=== PATIENT | female | born 1945 | race Two or more races ===

== ENCOUNTER 2016-02-18 00:35 | Inpatient (IN) | payer OTHER, MEDICAID ==
[~2016-02-18] VITALS: Ht 165.1 cm; Wt 121.4 kg
[2016-02-18] VITALS (10 sets, daily range): BP systolic 142–183; BP diastolic 62–77; PULSE 60–70; RESP 18–20; Ht 165.1 cm; Wt 121.4 kg
[~2016-02-18 00:35] MED LIST: ASPI-535 PO; CALC-600 PO; CELE50CA PO; LISI20TA11 PO; MONT10TA21 PO; MTF1000T PO; OMEP20TA42 PO; RAMI10CA48 PO; SITA25TA3 PO; SMV40T PO; TRIA1POW10 MC; [UNRECOGNIZED DRUG - CODE] PO
[2016-02-18] MEDS ORDERED: SOD CHLORIDE 0.9% 500 ML IV STA (00:45)
--- NOTE | 2016-02-18 01:25 | RADRPT ---
PROCEDURE: XR Chest. CLINICAL INDICATION: Syncope TECHNIQUE: AP Portable chest. COMPARISON: 01/16/2013 FINDINGS: There is moderate cardiomegaly. The lungs are clear. The osseous structures are unremarkable. IMPRESSION: No acute findings. RPTAT: HIKT .Vinicio Bay MD, MD Date Time Electronically viewed and signed by .Vinicio Bay MD, MD on 02/18/2016 01:25 .T/
[2016-02-18 01:32] LABS: BASOPHILS % 0.4 % (0.0-2.0); EOSINOPHILS # 0.1 10^3/ul (0.0-0.5); EOSINOPHILS % 2.2 % (0.0-7.0); HEMATOCRIT 34.3 % (37.0-47.0); HEMOGLOBIN 11.2 g/dl (12.0-16.0); LYMPHOCYTES # 0.9 10^3/ul (0.8-2.9); LYMPHOCYTES % 15.7 % (15.0-51.0); MEAN CORPUSCULAR HEMOGLOBIN 25.3 pg (29.0-33.0); MEAN CORPUSCULAR HGB CONC 32.6 g/dl (32.0-37.0); MEAN CORPUSCULAR VOLUME 77.6 fl (82.0-101.0); MEAN PLATELET VOLUME 9.9 fl (7.4-10.4); MONOCYTE # 0.5 10^3/ul (0.3-0.9); MONOCYTES % 9.5 % (0.0-11.0); NEUTROPHILS % 72.2 % (39.0-77.0); PLATELET COUNT 100 10^3/UL (140-440); RED BLOOD COUNT 4.42 10^6/ul (4.20-5.40); RED CELL DISTRIBUTION WIDTH 16.8 % (11.5-14.5); UNCORRECTED WBC 5.6 10^3/ul (4.8-10.8); WHITE BLOOD COUNT 5.6 10^3/ul (4.8-10.8)
[2016-02-18 01:34] LABS: CONDITION 1; LH ANALYZER COMMENTS 1
[2016-02-18] MEDS ORDERED: LORAZEPAM 2 MG INJ ONE (01:36)
[2016-02-18 01:44] LABS: CHLORIDE 102 mmol/L (97-110); POTASSIUM 3.9 mmol/L (3.5-5.1); SODIUM 138 mmol/L (135-144)
[2016-02-18 01:47] LABS: ANION GAP 18 (8-16); BLOOD UREA NITROGEN 21 mg/dl (7-20); CARBON DIOXIDE 22 mmol/L (21-31); CREATININE 0.58 mg/dl (0.44-1.00)
[2016-02-18 01:48] LABS: CALCIUM 9.1 mg/dl (8.4-10.2); GLUCOSE 167 mg/dl (70-220)
[2016-02-18] MEDS ORDERED: LORAZEPAM 2 MG INJ IV ONE (02:00)
[2016-02-18 02:05] LABS: TROPONIN-I < 0.012 ng/ml (0.00-0.12)
--- NOTE | 2016-02-18 02:13 | RADRPT ---
PROCEDURE: CT brain without contrast. CLINICAL INDICATION: Syncope. TECHNIQUE: CT of the brain was performed using a ZMPpeed 64-slice VCT scann er. Contiguous axial images using 5-mm slice thickness were obtained from the skull base to the cassie marychuy without contrast. Coronal and sagittal reformatted images were also obtained. Images were review ed on a PACS workstation. Exam CTD/vol = 43.77 mGy. Total exam DLP = 810.25 mGy-cm. COMPARISON: 01/14/2013. FINDINGS: There is prior left frontotemporal craniotomy. There is an area of encephalomalacia within the left temporal lobe. The ventricles and cortical sulci are prominent consistent with mild age related vol ume loss. There are patchy areas of low attenuation within the periventricular and subcortical whit e matter consistent with mild chronic ischemic changes secondary to small vessel disease. There is no mass effect or midline shift. There is no intracranial hemorrhage or abnormal extra-axial collec tion. There are atherosclerotic calcifications within bilateral distal internal carotid arteries. Vi sualized paranasal sinuses and mastoid air cells are clear. IMPRESSION: No acute intracranial abnormality identified. Mild age related volume loss and chronic ischemic white matter disease. Cerebral atherosclerosis. Status post left frontotemporal craniotomy with area of encephalomalacia within the left temporal lo be. .Mauricio Ornelas MD, MD Date Time Electronically viewed and signed by .Mauricio Ornelas MD, MD on 02/18/2016 02:13 .T/
--- NOTE | 2016-02-18 02:19 | ERA ---
ER Documentation Chief Complaint Date/Time DATE: 02/18/16 TIME: 02:18 Chief Complaint L ankle pain, R knee pain,no fall HPI This 70-year-old female complains of left ankle and right knee pain after she either passed out or almost passed out. Patient is unable to quantify between the 2. She denies any chest pain. Pain in ankle and knee are mild to moderate intensity. No fevers or chills. No palpitations. No chest pain. No other current complaints. She is nonfocal neurologically with no focal neurological complaints ROS All systems reviewed and are negative except as per history of present illness. Medications Home Meds Reported Medications Sitagliptin* (Januvia*) 25 Mg Tablet, 25 MG PO DAILY 04/02/12 Aspirin Ec (Aspir 81) 81 Mg Tablet.dr, 81 MG PO DAILY 04/02/12 Montelukast Sodium* (Singulair*) 10 Mg Tablet, 10 MG PO DAILY 04/02/12 Lisinopril* (Lisinopril*) 20 Mg Tablet, 20 MG PO DAILY 04/02/12 Simvastatin (Simvastatin) 40 Mg Tablet, 40 MG PO MIN 04/02/12 Calcium (Calcium) 500 Mg Tablet, 500 MG PO DAILY 03/09/11 Triamterene (Triamterene Powder) 25 Gm Powder, 25 GM MC DAILY 03/09/11 Celecoxib (Celebrex) 50 Mg Capsule, 50 MG PO DAILY 03/09/11 Ramipril (Ramipril) 10 Mg Capsule, 10 MG PO DAILY 03/09/11 Omeprazole (Omeprazole) 20 Mg Tablet.dr, 20 MG PO DAILY 03/09/11 Hydrocodone Bit/Acetaminophen (Hydrocodone-Apap 10-500 Mg Tab) 1 Tab Tablet, 1 TAB PO DAILY 03/09/11 Metformin* (Glucophage*) 1,000 Mg Tablet, 1000 MG PO DAILY 03/09/11 Allergies Allergies: Coded Allergies: No Known Allergy (Unverified , 01/14/13) PMhx/Soc History of Surgery: Yes (R ANKLE, L KNEE) Anesthesia Reaction: No Hx Respiratory Disorders: Yes Hx Cardiac Disorders: Yes Hx Psychiatric Problems: No Hx Alcohol Use: No Hx Substance Use: No Hx Tobacco Use: Yes Smoking Status: Former smoker Physical Exam Vitals Vital Signs Date Time Temp Pulse Resp B/P Pulse Ox O2 Delivery O2 Flow Rate FiO2 02/18/16 00:46 98.1 73 18 141/90 99 Physical Exam Const: [] Head: Atraumatic Eyes: Normal Conjunctiva ENT: Normal External Ears, Nose and Mouth. Neck: Full range of motion..~ No meningismus. Resp: Clear to auscultation bilaterally Cardio: Regular rate and rhythm, no murmurs Abd: Soft, non tender, non distended. Normal bowel sounds Skin: No petechiae or rashes Back: No midline or flank tenderness Ext: No cyanosis, or edema Neur: Awake and alert Psych: Normal Mood and Affect Result Diagram: 02/18/1612402/18/16124 Results 24 hrs Laboratory Tests Test 02/18/16 01:18 02/18/16 01:25 Bedside Glucose 167mg/dL Anion Gap 18 Basophils # 0.010^3/ul Basophils % 0.4% Blood Morphology Comment Blood Urea Nitrogen 21mg/dl Calcium Level 9.1mg/dl Carbon Dioxide Level 22mmol/L Chloride Level 102mmol/L Creatinine 0.58mg/dl Eosinophils # 0.110^3/ul Eosinophils % 2.2% Glucose Level 167mg/dl Hematocrit 34.3% Hemoglobin 11.2g/dl Lymphocytes # 0.910^3/ul Lymphocytes % 15.7% Mean Corpuscular Hemoglobin 25.3pg Mean Corpuscular Hemoglobin Concent 32.6g/dl Mean Corpuscular Volume 77.6fl Mean Platelet Volume 9.9fl Monocytes # 0.510^3/ul Monocytes % 9.5% Neutrophils # 4.010^3/ul Neutrophils % 72.2% Nucleated Red Blood Cells # 0.010^3/ul Nucleated Red Blood Cells % 0.0/100WBC Platelet Count 55646^3/UL Potassium Level 3.9mmol/L Red Blood Count 4.4210^6/ul Red Cell Distribution Width 16.8% Sodium Level 138mmol/L Troponin I < 0.012ng/ml White Blood Count 5.610^3/ul Current Medications Medications (Trade) Dose Ordered Sig/Macho Route PRN Reason Start Time Stop Time Status Last Admin Dose Admin Sodium Chloride (NS) 500 ml @ 500 mls/hr Q1H STAT IV 02/18/16 00:45 02/18/16 01:44 DC 02/18/16 01:41 Lorazepam (Ativan) 1 mg ONCE ONCE IV 1/3/17 02:00 02/18/16 02:01 DC 02/18/16 01:41 Lorazepam (Ativan) 2 mg STK-MED ONCE .ROUTE 02/18/16 01:36 02/18/16 01:37 DC Procedures/MDM EKG: Rate/Rhythm: Normal Sinus Rhythm QRS, ST, T-waves: No changes consistent w/ acute ischemia Impression: No evidence of ischemia or arrhythmia Chest X-ray 1V Interpreted by me: Soft Tissue: No acute abnormalities Bones: No acute abnormalities Mediastinum/Cardiac Silhouette/Lungs: No acute abnormalities Head CT was read as negative I do not feel any further imaging was necessary for her knee or ankle given no evidence of any bony abnormalities are full range of motion of both joints. Patient's syncopal symptoms are unstable at this time and require inpatient workup. No evidence of PE or dissection at this time but occult ischemia or fatal dysrhythmia cannot be ruled out. Patient admitted to hospitalist at 2 AM in stable but guarded condition Departure Diagnosis: Primary Impression: Syncope Qualified Code: R55 - Syncope, unspecified syncope type Condition: Serious MAURO MARROQUIN Feb 18, 2016 02:19
[2016-02-18] MEDS ORDERED: KETOROLAC 30 MG INJ IM STA (03:00)
[2016-02-18] MEDS ORDERED: ACETAMINOPHEN 325 MG TAB PO PRN (08:30)
[2016-02-18] MEDS ORDERED: NACL 0.9% 3 ML SYG IV SCH (08:30)
[2016-02-18] MEDS ORDERED: NON-FORMULARY/PATIENT OWN MED (Simvastatin 40 MG) PO SCH (08:30)
[2016-02-18] MEDS ORDERED: ONDANSETRON 4 MG INJ IV PRN (08:30)
[2016-02-18] MEDS ORDERED: morphine 2 MG INJ IV PRN (08:30)
[2016-02-18] MEDS ORDERED: DOCUSATE SODIUM 100 MG CAP PO PRN (08:30)
[2016-02-18] MEDS ORDERED: HYDROCODONE/APAP (5/325) TAB PO PRN (08:30)
[2016-02-18] MEDS ORDERED: CELECOXIB 50 MG PO SCH (09:00)
[2016-02-18] MEDS ORDERED: TRIAMTERENE MC SCH (09:00)
[2016-02-18] MEDS ORDERED: CALCIUM CARBONATE 1.25 GM TAB PO SCH ×2 (09:00→09:25)
[2016-02-18] MEDS ORDERED: NON-FORMULARY/PATIENT OWN MED (Ramipril 10 MG) PO SCH (09:00)
[2016-02-18] MEDS ORDERED: NON-FORMULARY/PATIENT OWN MED (Sitagliptin* (Januvia*) 25 MG) PO SCH (09:00)
[2016-02-18] MEDS: metFORMIN 500 MG TAB PO SCH (09:54)
[2016-02-18] MEDS: LISINOPRIL 20 MG TAB PO SCH (09:55)
[2016-02-18] MEDS: MONTELUKAST 10 MG TAB PO SCH (09:55)
[2016-02-18] MEDS: ASPIRIN (EC) 81 MG TAB PO SCH (09:55)
[2016-02-18] MEDS: PANTOPRAZOLE (EC) 40 MG TAB PO SCH (09:55)
[2016-02-18] MEDS: ENOXAPARIN 40 MG/0.4 ML SYG SC SCH (09:58)
--- NOTE | 2016-02-18 11:17 | HP ---
DATE OF ADMISSION: 02/18/2016 TIME OF ADMISSION: 8:00 a.m. CHIEF COMPLAINT: Weakness. HISTORY OF PRESENT ILLNESS: The patient is a 70-year-old female with history of debility who is mos tly bed bound. She does ambulate with a front-wheel walker. She has a history of pnc-ljasjzi-mlhwl dent diabetes, hypertension and obesity. The patient denies any history of stroke in the past. She states that she has some issues with her feet where it sounds like they are constantly adducted. S he does see a specialist for this. She states that yesterday she felt weaker than usual and stated that her front-wheel walker was broken and felt uncomfortable to get on the walker and walk. She de nies any syncope, denies any dizziness. She states that she just felt weaker than her usual baselin e. She has no other complaints at this time. No nausea, vomiting. No chest pain or shortness of b reath. PAST MEDICAL HISTORY: As per HPI. Of note, the patient follows up with Dr. Fran Delarosa as her PCP. HOME MEDICATIONS: 1. Ravia. 2. Aspirin. 3. Calcium. 4. Celebrex. 5. Lisinopril. 6. Metformin. 7. Singulair. 8. Omeprazole. 9. Ramipril. 10. Simvastatin. 11. Januvia. 12. Triamterene powder. ALLERGIES: NO KNOWN DRUG ALLERGIES. FAMILY HISTORY: Noncontributory. SOCIAL HISTORY: Denies alcohol, tobacco, or drug abuse. REVIEW OF SYSTEMS: A 12-point review of systems negative except as in HPI. PHYSICAL EXAMINATION: VITAL SIGNS: Temperature is 98.1, pulse 95, respiratory rate 22, blood pressure 154/68, saturation 99% on room air. GENERAL: No acute distress, alert and oriented. HEENT: Normocephalic, atraumatic. LUNGS: Clear to auscultation. CARDIOVASCULAR: Regular rate and rhythm. ABDOMEN: Nondistended, nontender, soft. EXTREMITIES: No clubbing, cyanosis, or edema. LABORATORIES: White count 5.6, hemoglobin 11.2, platelets are 100. Chemistry within normal limits except for anion gap of 18, BUN is 21. DIAGNOSTICS: Chest x-ray shows no acute findings. Brain CT shows no acute abnormalities, mild age- related volume loss and chronic white matter disease, cerebral atherosclerosis, status post left fro ntotemporal craniotomy with area of encephalomalacia within the left temporal lobe. ASSESSMENT AND PLAN: 1. Acute on chronic debility. The patient once again denies any syncopal episode. She states that she feels weaker than usual. We will obtain a PT evaluation. The patient may benefit from rehabil itation placement. 2. Ora-xhoimoa-ewojabiqe diabetes. Resume patient's home Januvia. 3. Hypertension. Continue home medications. 4. Prophylaxis. Lovenox. Dictated By: AMAURI SAMANIEGO MD BS/NTS Conf#: [id number] DID#: [id number]
[2016-02-18] MEDS: INSULIN ASPART [NOVOLOG] 3 ML PEN SC SCH ×3 (12:02→21:00)
[2016-02-18] MEDS: LINAGLIPTIN 5 MG TABLET PO SCH (15:02)
[2016-02-18] MEDS: BENAZEPRIL 20 MG TAB PO SCH (15:03)
[2016-02-18] MEDS ORDERED: SIMVASTATIN 20 MG TAB PO SCH (21:00)
[2016-02-18] MEDS: ATORVASTATIN 20 MG TAB PO SCH (21:05)
[2016-02-19] VITALS (10 sets, daily range): BP systolic 96–181; BP diastolic 53–83; PULSE 63–69; RESP 18–20
[2016-02-19] MEDS ORDERED: ACCUCHECK XX SCH (02:00)
[2016-02-19] MEDS: PANTOPRAZOLE (EC) 40 MG TAB PO SCH (05:24)
[2016-02-19 06:17] LABS: BASOPHILS % 0.7 % (0.0-2.0); EOSINOPHILS # 0.2 10^3/ul (0.0-0.5); EOSINOPHILS % 4.2 % (0.0-7.0); HEMATOCRIT 33.3 % (37.0-47.0); LYMPHOCYTES % 24.3 % (15.0-51.0); MEAN CORPUSCULAR HEMOGLOBIN 25.6 pg (29.0-33.0); MEAN CORPUSCULAR VOLUME 77.6 fl (82.0-101.0); MEAN PLATELET VOLUME 10.3 fl (7.4-10.4); MONOCYTE # 0.4 10^3/ul (0.3-0.9); NEUTROPHIL # 2.5 10^3/ul (1.6-7.5); NEUTROPHILS % 60.8 % (39.0-77.0); PLATELET COUNT 98 10^3/UL (140-440); RED BLOOD COUNT 4.28 10^6/ul (4.20-5.40); RED CELL DISTRIBUTION WIDTH 17.3 % (11.5-14.5); UNCORRECTED WBC 4.1 10^3/ul (4.8-10.8); WHITE BLOOD COUNT 4.1 10^3/ul (4.8-10.8)
[2016-02-19 06:38] LABS: CONDITION 1; LH ANALYZER COMMENTS 1
[2016-02-19 06:52] LABS: POTASSIUM 4.2 mmol/L (3.5-5.1)
[2016-02-19 06:54] LABS: CREATININE 0.56 mg/dl (0.44-1.00)
[2016-02-19 06:55] LABS: CALCIUM 9.3 mg/dl (8.4-10.2); MAGNESIUM 1.6 mg/dl (1.7-2.5); PHOSPHORUS 3.8 mg/dl (2.5-4.9)
[2016-02-19 07:18] LABS: T3 UPTAKE 32.3 % (23.5-40.5)
[2016-02-19] MEDS: metFORMIN 500 MG TAB PO SCH (07:41)
[2016-02-19] MEDS: INSULIN ASPART [NOVOLOG] 3 ML PEN SC SCH ×5 (07:53→20:52)
[2016-02-19] MEDS: LINAGLIPTIN 5 MG TABLET PO SCH (08:22)
[2016-02-19] MEDS: MONTELUKAST 10 MG TAB PO SCH (08:22)
[2016-02-19] MEDS: ASPIRIN (EC) 81 MG TAB PO SCH (08:22)
[2016-02-19] MEDS: LISINOPRIL 20 MG TAB PO SCH (08:23)
[2016-02-19] MEDS: BENAZEPRIL 20 MG TAB PO SCH (08:23)
[2016-02-19] MEDS: ENOXAPARIN 40 MG/0.4 ML SYG SC SCH (08:28)
--- NOTE | 2016-02-19 17:09 | PDOCDIS ---
Discharge Instructions CONDITION Patient Condition: Stable HOME CARE INSTRUCTIONS: Special Diet: Diabetic ACTIVITY: Activity Restrictions: Slowly Increase Activity FOLLOW UP/APPOINTMENTS Appointments Go to the nearest ER or call 911 if you have chest pain, shortness of breath, fever, chills MAURO SOLIMAN MD Feb 19, 2016 17:09
[2016-02-19] MEDS ORDERED: MAGNESIUM OXIDE 400 MG TAB PO ONE (17:30)
[2016-02-19] MEDS ORDERED: MAGNESIUM SULFATE 2 GM/50 ML 50 ML IVPB SCH (18:00)
--- NOTE | 2016-02-19 19:23 | PN ---
Date/Time of Note Date/Time of Note DATE: 02/19/16 TIME: 19:23 Assessment/Plan Lines/Catheters IV Catheter Type (from Nrs): Saline Lock Urinary Cath still in place: No Exam/Review of Systems Vital Signs Vitals Vital Signs Date Time Temp Pulse Resp B/P Pulse Ox O2 Delivery O2 Flow Rate FiO2 02/19/16 12:03 98.1 63 18 154/83 96 02/18/16 07:45 Room Air Intake and Output 02/18/16 02/18/16 02/19/16 15:00 23:00 07:00 Intake Total 100 ml 1000 ml 600 ml Output Total 1600 ml 1500 ml Balance 100 ml -600 ml -900 ml Results Result Diagram: 02/19/16 0535 02/19/16 0535 Results 24 hrs Laboratory Tests Test 02/18/16 21:04 02/19/16 05:35 02/19/16 07:38 02/19/16 12:04 Bedside Glucose 152 178 145 Anion Gap 18 H Basophils # 0.0 Basophils % 0.7 Blood Morphology Comment Blood Urea Nitrogen 13 Calcium Level 9.3 Carbon Dioxide Level 24 Chloride Level 106 Creatinine 0.56 Eosinophils # 0.2 Eosinophils % 4.2 Free Thyroxine Index 2.78 Glucose Level 170 Hematocrit 33.3 L Hemoglobin 11.0 L Hemoglobin A1c 7.7 H Lymphocytes # 1.0 Lymphocytes % 24.3 Magnesium Level 1.6 L Mean Corpuscular Hemoglobin 25.6 L Mean Corpuscular Hemoglobin Concent 33.0 Mean Corpuscular Volume 77.6 L Mean Platelet Volume 10.3 Monocytes # 0.4 Monocytes % 10.0 Neutrophils # 2.5 Neutrophils % 60.8 Nucleated Red Blood Cells # 0.0 Nucleated Red Blood Cells % 0.0 Phosphorus Level 3.8 Platelet Count 98 L Potassium Level 4.2 Red Blood Count 4.28 Red Cell Distribution Width 17.3 H Sodium Level 144 Thyroxine (T4) 8.6 Triiodothyronine (T3) Uptake 32.3 White Blood Count 4.1 #L Test 02/19/16 17:23 Bedside Glucose 127 Medications Medications Current Medications Ondansetron HCl (Zofran Inj) 4 mg Q6H PRN IV NAUSEA AND/OR VOMITING; Start 02/17 at 08:30 Acetaminophen (Tylenol Tab) 650 mg Q6H PRN PO PAIN LEVEL 1-3 OR FEVER; Start at 08:30 Acetaminophen/ Hydrocodone Bitart ([place] (5/325)) 1 tab Q6H PRN PO MODERATE PAIN LEVEL 4-6 Last administered on 02/19/16 12:07; Admin Dose 1 TAB; Start 02/17 at 08:30 Morphine Sulfate (morphine) 2 mg Q4H PRN IV SEVERE PAIN LEVEL 7-10; Start at 08:30 Docusate Sodium (Colace) 100 mg Q12H PRN PO CONSTIPATION; Start 02/18/16 at 08: 30 Enoxaparin Sodium (Lovenox) 40 mg DAILY SC Last administered on 02/19/16 08:28 ; Admin Dose 40 MG; Start 02/18/16 at 09:00 Aspirin (Halfprin) 81 mg DAILY PO Last administered on 02/19/16 08:22; Admin Dose 81 MG; Start 02/18/16 at 09:00 Lisinopril (Zestril) 20 mg DAILY PO Last administered on 02/19/16 08:23; Admin Dose 20 MG; Start 02/18/16 at 09:00 Montelukast Sodium (Singulair) 10 mg DAILY PO Last administered on 02/19/16 08: 22; Admin Dose 10 MG; Start 02/18/16 at 09:00 Miscellaneous Information 50 mg DAILY PO ; Start 02/18/16 at 09:00; Status UNV Pantoprazole (Protonix Tab) 40 mg DAILY@06 PO Last administered on 02/19/16 05: 24; Admin Dose 40 MG; Start 02/18/16 at 09:00 Miscellaneous Information 25 gm DAILY MC ; Start 02/18/16 at 09:00; Status UNV Diagnostic Test (Pha) (Accucheck) 1 ea 02 XX ; Start 02/19/16 at 02:00 Calcium Carbonate (Oyster Shell Calcium) 1.25 gm DAILY PO Last administered on 02/19/16 08:22; Admin Dose 1.25 GM; Start 02/18/16 at 09:25 Benazepril HCl (Lotensin) 20 mg DAILY PO Last administered on 02/19/16 08:23; Admin Dose 20 MG; Start 02/18/16 at 13:00 Linagliptin (Tradjenta) 5 mg DAILY PO Last administered on 02/19/16 08:22; Admin Dose 5 MG; Start 02/18/16 at 13:00 Atorvastatin Calcium 20 mg 20 mg DAILY@21 PO Last administered on 02/18/16 21: 05; Admin Dose 20 MG; Start 02/18/16 at 21:00 Magnesium Sulfate (Magnesium Sulfate 2 Gm/50 ml) 50 ml @ 25 mls/hr ONCE IVPB ; Start 02/19/16 at 18:00; Stop 02/19/16 at 19:59 MAURO SOLIMAN MD Feb 19, 2016 19:23
[2016-02-19] MEDS: ATORVASTATIN 20 MG TAB PO SCH (20:50)
== END 2016-02-19 22:00 | disposition home or self-care (01) | DRG 72 ==
LOC: E/R 00:35 → TEL 02:10 → MS2 02-19 11:50
PROVIDERS: ADMIT Internal Medicine; ATTEND Internal Medicine
DX: I67.2 Cerebral atherosclerosis (principal); R54 Age-related physical debility; E11.9 Type 2 diabetes mellitus without complications; I10 Essential (primary) hypertension; R53.1 Weakness
CPT/HCPCS: 36415; 70450; 71010; 80048; 82962; 83036; 83735; 84100; 84436; 84479; 84484; 85025; 93005; 96374; J1650; J1815; J1885; J2060; J3475; J7040

== ENCOUNTER 2016-02-26 04:42 | Inpatient (IN) | payer OTHER, MEDICAID ==
[~2016-02-26] VITALS: Ht 162.6 cm; Wt 119.1 kg
[2016-02-26 05:40] LABS: BASOPHILS % 0.6 % (0.0-2.0); EOSINOPHILS # 0.4 10^3/ul (0.0-0.5); EOSINOPHILS % 5.5 % (0.0-7.0); HEMATOCRIT 35.3 % (37.0-47.0); HEMOGLOBIN 11.7 g/dl (12.0-16.0); LYMPHOCYTES # 1.2 10^3/ul (0.8-2.9); LYMPHOCYTES % 16.2 % (15.0-51.0); MEAN CORPUSCULAR HEMOGLOBIN 25.6 pg (29.0-33.0); MEAN CORPUSCULAR HGB CONC 33.1 g/dl (32.0-37.0); MEAN CORPUSCULAR VOLUME 77.2 fl (82.0-101.0); MEAN PLATELET VOLUME 10.3 fl (7.4-10.4); MONOCYTE # 0.5 10^3/ul (0.3-0.9); MONOCYTES % 7.5 % (0.0-11.0); NEUTROPHIL # 5.1 10^3/ul (1.6-7.5); NEUTROPHILS % 70.2 % (39.0-77.0); PLATELET COUNT 110 10^3/UL (140-440); RED BLOOD COUNT 4.57 10^6/ul (4.20-5.40); RED CELL DISTRIBUTION WIDTH 16.3 % (11.5-14.5); UNCORRECTED WBC 7.2 10^3/ul (4.8-10.8); WHITE BLOOD COUNT 7.2 10^3/ul (4.8-10.8)
[2016-02-26 05:48] LABS: ALBUMIN 4.1 g/dl (3.3-4.9); CHLORIDE 105 mmol/L (97-110); POTASSIUM 4.2 mmol/L (3.5-5.1); SODIUM 140 mmol/L (135-144)
[2016-02-26 05:49] LABS: INR 1.08; PT RATIO 1.1
[2016-02-26 05:50] LABS: ANION GAP 19 (8-16); ASPARTATE AMINO TRANSFERASE 33 IU/L (15-46); BILIRUBIN,INDIRECT 0.2 mg/dl (0-1.1); BILIRUBIN,TOTAL 0.2 mg/dl (0.2-1.3); CARBON DIOXIDE 20 mmol/L (21-31); CONDITION 1; CREATININE 0.59 mg/dl (0.44-1.00); LH ANALYZER COMMENTS 1; PARTIAL THROMBOPLASTIN TIME 29.1 Sec (25.0-35.0)
[2016-02-26 05:51] LABS: ALANINE AMINOTRANSFERASE 29 IU/L (13-69); ALBUMIN/GLOBULIN RATIO 1.17; ALKALINE PHOSPHATASE 109 IU/L (42-121); BLOOD UREA NITROGEN 14 mg/dl (7-20); CALCIUM 9.8 mg/dl (8.4-10.2); GLUCOSE 214 mg/dl (70-220); TOTAL PROTEIN 7.6 g/dl (6.1-8.1)
--- NOTE | 2016-02-26 05:55 | RADRPT ---
PROCEDURE: XR Chest. CLINICAL INDICATION: Stroke symptoms TECHNIQUE: A single AP view of the chest was obtained. COMPARISON: Chest x-ray dated 02/18/2016 FINDINGS: No focal airspace opacification, pleural effusion or pneumothorax is seen. The cardiomediastinal si lhouette is mildly enlarged. Calcifications are seen within the aortic arch. The osseous structure s demonstrate senescent changes. IMPRESSION: 1. No radiographic evidence of acute cardiopulmonary disease. no significant interval change. 2. Mild cardiomegaly and aortic atherosclerosis. RPTAT: HH .Ernestine Dorado MD, MD Date Time Electronically viewed and signed by .Ernestine Dorado MD, MD on 02/26/2016 05:55 .G/
--- NOTE | 2016-02-26 06:08 | RADRPT ---
PROCEDURE: CT Brain without contrast. CLINICAL INDICATION: Weakness and suspected stroke TECHNIQUE: Axial images from the skull base through the vertex without IV contrast. Multiplanar r eformatted images were made. Images were reviewed on a PACS workstation. The CTDIvol is 45.01 mGy and the DLP is 720.23 mGycm. One or more of the following dose reduction techniques were used: auto mated exposure control, adjustment of the mA and/or kV according to patient size, or use of iterativ e reconstruction technique. COMPARISON: 02/18/2016 FINDINGS: Again seen are changes from prior left frontotemporal craniotomy with left temporal lobe encephaloma lacia. Atrophy and chronic microvascular ischemic changes are again seen. There is no definite donaldo dence for acute territorial infarction or intracranial hemorrhage. No mass or midline shift is seen . No extraaxial fluid collection is seen. Partial opacification of the left mastoid is unchanged. IMPRESSION: No definite acute intracranial abnormality. Stable exam with atrophy and chronic microvascular ische alyssa changes with left temporal lobe encephalomalacia and postoperative changes. Results were called to Dr. Garcia at 02/26/2016 6:04:41 AM RPTAT: HLBE Physician Vivek Date Time Electronically viewed and signed by Physician Vivek on 02/26/2016 06:08 RACHEL/
[2016-02-26 06:14] LABS: TROPONIN-I < 0.010 ng/ml (0.00-0.12)
[2016-02-26] MEDS ORDERED: HYDROCODONE/APAP (10/325) TAB PO ONE (06:30)
[2016-02-26] MEDS ORDERED: ASPIRIN 325 MG TAB PO ONE (06:30)
[2016-02-26 06:34] LABS: ADD UMIC YES; URINE BILIRUBIN (Dip) NEGATIVE (NEGATIVE); URINE BLOOD (Dip) 3+ (NEGATIVE); URINE COLOR LT. YELLOW (YELLOW); URINE GLUCOSE (Dip) NEGATIVE (NEGATIVE); URINE KETONES (Dip) NEGATIVE (NEGATIVE); URINE LEUKOCYTE ESTERASE (Dip) 1+ (NEGATIVE); URINE NITRITE (Dip) NEGATIVE (NEGATIVE); URINE TOTAL PROTEIN (Dip) NEGATIVE (NEGATIVE); URINE UROBILINOGEN (Dip) 0.2 E.U./dL (0.1-1.0)
[2016-02-26 06:50] LABS: BACTERIA,URINE MODERATE
[2016-02-26] MEDS ORDERED: ONDANSETRON 4 MG INJ IV PRN ×2 (07:00→07:30)
[2016-02-26] MEDS ORDERED: ACETAMINOPHEN 325 MG TAB PO PRN (07:00)
[2016-02-26] MEDS ORDERED: DEXTROSE 5%-0.45% NACL 1,000 ML IV SCH (07:07)
[2016-02-26] MEDS ORDERED: morphine 2 MG INJ IV PRN (07:30)
[2016-02-26] MEDS ORDERED: LORAZEPAM 2 MG INJ IV PRN (07:30)
[2016-02-26] MEDS ORDERED: NACL 0.9% 3 ML SYG IV SCH (07:30)
[2016-02-26] MEDS ORDERED: NITROGLYCERIN (SL) 0.4 MG TAB SL PRN (07:30)
[2016-02-26] MEDS ORDERED: BISACODYL 10 MG SUPP PR PRN (07:30)
[2016-02-26] MEDS ORDERED: ACETAMINOPHEN 650 MG SUPP PR PRN (07:30)
[2016-02-26] MEDS ORDERED: DEXTROSE 50% 50 ML SYRINGE IV PRN ×2 (08:00)
[2016-02-26] MEDS: INSULIN ASPART [NOVOLOG] 3 ML PEN SC SCH ×4 (08:00→22:06)
[2016-02-26] MEDS ORDERED: GLUCOSE GEL 15 GRAM TUBE PO PRN ×2 (08:00)
[2016-02-26] MEDS ORDERED: GLUCAGON 1 MG INJ IM PRN (08:00)
[2016-02-26] MEDS ORDERED: GLUCOSE GEL 15 GRAM TUBE BUCCAL PRN (08:00)
--- NOTE | 2016-02-26 08:10 | ERA ---
ER Documentation Chief Complaint Date/Time DATE: 02/26/16 TIME: 08:07 Chief Complaint facial weakness, w/ right facial droop nunmbness of both hands at 6 pm yest HPI Patient is a 71-year-old female with coronary disease, hypertension, diabetes, and previous stroke who presents with right-sided facial droop and right-sided numbness. The patient says that she had trouble swallowing which started last night around 6 PM. She has no slurred speech. She does have right arm weakness and is having limited ability to close her right hand. She has had no treatment as of yet. The symptoms have been constant since last night at 6 PM. ROS All systems reviewed and are negative except as per history of present illness. Medications Home Meds Reported Medications Sitagliptin* (Januvia*) 25 Mg Tablet, 25 MG PO DAILY 04/02/12 Aspirin Ec (Aspir 81) 81 Mg Tablet.dr, 81 MG PO DAILY 04/02/12 Montelukast Sodium* (Singulair*) 10 Mg Tablet, 10 MG PO DAILY 04/02/12 Lisinopril* (Lisinopril*) 20 Mg Tablet, 20 MG PO DAILY 04/02/12 Simvastatin (Simvastatin) 40 Mg Tablet, 40 MG PO MIN 04/02/12 Calcium (Calcium) 500 Mg Tablet, 500 MG PO DAILY 03/09/11 Triamterene (Triamterene Powder) 25 Gm Powder, 25 GM MC DAILY 03/09/11 Celecoxib (Celebrex) 50 Mg Capsule, 50 MG PO DAILY 03/09/11 Ramipril (Ramipril) 10 Mg Capsule, 10 MG PO DAILY 03/09/11 Omeprazole (Omeprazole) 20 Mg Tablet.dr, 20 MG PO DAILY 03/09/11 Hydrocodone Bit/Acetaminophen (Hydrocodone-Apap 10-500 Mg Tab) 1 Tab Tablet, 1 TAB PO DAILY 03/09/11 Metformin* (Glucophage*) 1,000 Mg Tablet, 1000 MG PO DAILY 03/09/11 Allergies Allergies: Coded Allergies: No Known Allergy (Unverified , 01/14/13) PMhx/Soc History of Surgery: Yes (craniotomy years ago,ankle and knee surgery) Anesthesia Reaction: No Hx Neurological Disorder: Yes Hx Respiratory Disorders: No Hx Cardiac Disorders: Yes (htn) Hx Psychiatric Problems: No Hx Miscellaneous Medical Probl: No Hx Alcohol Use: No Hx Substance Use: No Hx Tobacco Use: Yes Smoking Status: Current every day smoker FmHx Family History: diabetes Physical Exam Vitals Vital Signs Date Time Temp Pulse Resp B/P Pulse Ox O2 Delivery O2 Flow Rate FiO2 02/26/16 07:00 97.9 73 20 121/76 100 Room Air 02/26/16 06:14 83 22 136/76 98 Room Air 02/26/16 05:30 87 17 164/96 99 Room Air 02/26/16 04:46 97.8 90 20 232/93 97 Physical Exam Const: No acute distress Head: Atraumatic Eyes: Normal Conjunctiva ENT: Right-sided facial droop Neck: Full range of motion..~ No meningismus. Resp: Clear to auscultation bilaterally Cardio: Regular rate and rhythm, no murmurs Abd: Soft, non tender, non distended. 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, no pronator drift, no slurred speech Psych: Normal Mood and Affect Result Diagram: 02/26/16 0508 02/26/16 0508 Results 24 hrs Laboratory Tests Test 02/26/16 05:08 02/26/16 05:32 Activated Partial Thromboplast Time 29.1Sec Alanine Aminotransferase (ALT/SGPT) 29IU/L Albumin 4.1g/dl Albumin/Globulin Ratio 1.17 Alkaline Phosphatase 109IU/L Anion Gap 19 Aspartate Amino Transf (AST/SGOT) 33IU/L Basophils # 0.010^3/ul Basophils % 0.6% Blood Morphology Comment Blood Urea Nitrogen 14mg/dl Calcium Level 9.8mg/dl Carbon Dioxide Level 20mmol/L Chloride Level 105mmol/L Creatinine 0.59mg/dl Direct Bilirubin 0.00mg/dl Eosinophils # 0.410^3/ul Eosinophils % 5.5% Globulin 3.50g/dl Glucose Level 214mg/dl Hematocrit 35.3% Hemoglobin 11.7g/dl INR International Normalized Ratio 1.08 Indirect Bilirubin 0.2mg/dl Lymphocytes # 1.210^3/ul Lymphocytes % 16.2% Mean Corpuscular Hemoglobin 25.6pg Mean Corpuscular Hemoglobin Concent 33.1g/dl Mean Corpuscular Volume 77.2fl Mean Platelet Volume 10.3fl Monocytes # 0.510^3/ul Monocytes % 7.5% Neutrophils # 5.110^3/ul Neutrophils % 70.2% Nucleated Red Blood Cells # 0.010^3/ul Nucleated Red Blood Cells % 0.0/100WBC Platelet Count 98328^3/UL Potassium Level 4.2mmol/L Prothrombin Time 14.0Sec Prothrombin Time Ratio 1.1 Red Blood Count 4.5710^6/ul Red Cell Distribution Width 16.3% Sodium Level 140mmol/L Total Bilirubin 0.2mg/dl Total Protein 7.6g/dl Troponin I < 0.010ng/ml White Blood Count 7.210^3/ul Urine Bacteria MODERATE Urine Bilirubin NEGATIVE Urine Clarity CLEAR Urine Color LT. YELLOW Urine Epithelial Cells OCCASIONAL Urine Glucose NEGATIVE% Urine Hemoglobin 3+ Urine Ketones NEGATIVE Urine Leukocyte Esterase 1+ Urine Microscopic RBC 10-25/HPF Urine Microscopic WBC 5-10/HPF Urine Nitrite NEGATIVE Urine Specific [place] 1.010 Urine Total Protein NEGATIVE Urine Urobilinogen 0.2 E.U./dL Urine pH 6.0 Current Medications Medications (Trade) Dose Ordered Sig/Macho Route PRN Reason Start Time Stop Time Status Last Admin Dose Admin Aspirin (Aspirin) 325 mg ONCE ONCE PO 02/26/16 06:30 02/26/16 06:31 DC 02/26/16 07:04 Acetaminophen/ Hydrocodone Bitart ([place] (10/325)) 1 tab ONCE ONCE PO 02/26/16 06:30 02/26/16 06:31 DC 02/26/16 07:05 Ondansetron HCl (Zofran Inj) 4 mg ER BRIDGE PRN IV NAUSEA AND/OR VOMITING 02/26/16 07:00 02/27/16 06:59 Acetaminophen 650 mg 650 mg ER BRIDGE PRN PO MILD PAIN/FEVER 02/26/16 07:00 02/27/16 06:59 Dextrose/Sodium Chloride (D5-1/2ns) 1,000 ml @ 75 mls/hr [id number] IV 02/26/16 07:07 IV Flush (NS 3 ml) 3 ml PER PROTOCOL IV 02/26/16 07:30 Lorazepam (Ativan) 0.5 mg Q6H PRN IV ANXIETY 02/26/16 07:30 Ondansetron HCl (Zofran Inj) 4 mg Q6H PRN IV NAUSEA AND/OR VOMITING 02/26/16 07:30 Nitroglycerin (Nitroglycerin (Sl Tab) 0.4 Mg) 1 tab Q5M PRN SL CHEST PAIN 02/26/16 07:30 Acetaminophen (Tylenol Supp) 650 mg Q6H PRN DE PAIN LEVEL 1-3 OR FEVER 02/26/16 07:30 Morphine Sulfate (morphine) 2 mg Q4H PRN IV PAIN LEVEL 7-10 02/26/16 07:30 Bisacodyl (Dulcolax Supp) 10 mg DAILY PRN DE CONSTIPATION 02/26/16 07:30 Insulin Aspart (Novolog Insulin Pen) NOVOLOG *MILD* ALGORITHM WITH MEALS BEDTIME SC 02/26/16 08:00 Miscellaneous Information (* Miscellaneous Pharmacy Order) HYPOGLYCEMIA PROTOCOL w... ONCE ONCE XX 02/26/16 07:30 02/26/16 07:31 DC Miscellaneous Information (* Miscellaneous Pharmacy Order) Discontinue Glyburide, Glipizide,... ONCE ONCE XX 02/26/16 07:30 02/26/16 07:31 DC Miscellaneous Information (* Miscellaneous Pharmacy Order) Discontinue all previ... ONCE ONCE XX 02/26/16 07:30 02/26/16 07:31 DC Miscellaneous Information 1 ea NOTE XX 02/26/16 08:00 Glucose (Glutose) 15 gm Q15M PRN PO DECREASED GLUCOSE 02/26/16 08:00 Glucose (Glutose) 22.5 gm Q15M PRN PO DECREASED GLUCOSE 02/26/16 08:00 Dextrose (D50w Syringe) 25 ml Q15M PRN IV DECREASED GLUCOSE 02/26/16 08:00 Dextrose (D50w Syringe) 50 ml Q15M PRN IV DECREASED GLUCOSE 02/26/16 08:00 Glucagon (Glucagen) 1 mg Q15M PRN IM DECREASED GLUCOSE 02/26/16 08:00 Glucose (Glutose) 15 gm Q15M PRN BUCCAL DECREASED GLUCOSE 02/26/16 08:00 Procedures/MDM CT brain shows no acute abnormality per radiology. EKG read by me: Rate/Rhythm: Regular rate and rhythm at a normal rate Intervals: Normal Impression: No evidence of ischemia or arrhythmia Patient is a 71-year-old female with multiple comorbidities who presents with what looks like strokelike symptoms. I am concerned for acute ischemic stroke. There is no sign of intracranial hemorrhage. The patient is outside the window for TPA. The patient had an NIH stroke scale and bedside swallow evaluation performed by nursing. The patient was given aspirin after she passed a swallow evaluation. The patient will be admitted to a telemetry bed given her insurance and the fact that her primary doctor does not admit here. The patient has anemia but no need for transfusion at this time. Departure Diagnosis: Primary Impression: Stroke Qualified Code: I63.9 - Cerebrovascular accident (CVA), unspecified mechanism Additional Impression: Anemia Qualified Code: D64.9 - Anemia, unspecified type Condition: MAYTE Holguin MD Feb 26, 2016 08:10
[2016-02-26 08:16] LABS: BARBITURATES NEGATIVE (NEGATIVE); BENZODIAZEPINES NEGATIVE (NEGATIVE); CANNABINOIDS NEGATIVE (NEGATIVE)
[2016-02-26 08:17] LABS: COCAINE NEGATIVE (NEGATIVE); OPIATES POSITIVE (NEGATIVE)
[2016-02-26 09:23] LABS: CREATINE KINASE 45 IU/L (23-200)
[2016-02-26 09:25] LABS: MAGNESIUM 1.4 mg/dl (1.7-2.5)
[2016-02-26 09:33] LABS: CK-MB 2.45 ng/ml (0.0-2.4)
[2016-02-26 09:37] LABS: TROPONIN-I < 0.010 ng/ml (0.00-0.12)
[2016-02-26 09:57] LABS: THYROID STIMULATING HORMONE 0.791 MIU/L (0.465-4.680)
--- NOTE | 2016-02-26 10:28 | RADRPT ---
PROCEDURE: MR Brain without contrast. CLINICAL INDICATION: Neurologic deficit, weakness TECHNIQUE: An MRI of the brain was performed on a high-resolution MR scanner utilizing the followi ng sequences: Sagittal and axial T1 weighted, axial T2 weighted, axial FLAIR, coronal GRE, and axial diffusion weighted with ADC mapping. Images were reviewed high-resolution PACS workstation. No con trast was administered. COMPARISON: Correlation head CT today, brain MRI 01/17/2013 FINDINGS: Prior left frontal temporal craniotomy changes are identified with encephalomalacia involving the le ft anterior temporal lobe and left cavernous sinus. Focal diffusion restriction is seen in the left cavernous sinus which is unchanged from prior. No acute parenchymal hemorrhage, significant mass effect, or midline shift is identified . No eviden ce of recent infarct. Scattered subcortical, deep, and periventricular white matter T2-weighted/FLA IR hyperintensities are consistent with mild microvascular ischemic disease. The ventricles are stable size. Mild volume loss is noted. Normal flow voids are visible in the proximal intracranial arteries suggesting their patency. No significant opacification of the paranasal sinuses or mastoids. IMPRESSION: No significant interval change identified since 01/17/2013. No evidence of acute intracranial abnormality or recent infarct. Prior left frontal temporal craniotomy changes are identified with encephalomalacia and postoperativ e changes involving the left anterior temporal lobe and left cavernous sinus. Mild chronic microvascular disease. RPTAT: AA .Braulio Mcelroy MD, MD Date Time Electronically viewed and signed by .Braulio Mcelroy MD, on 02/26/2016 10:28 .T/
--- NOTE | 2016-02-26 12:54 | CONS ---
Date/Time of Note Date/Time of Note DATE: 02/26/16 TIME: 12:44 Assessment/Plan Assessment/Plan Chief Complaint/Hosp Course 71 year old female with DM, prior CVA, previous brain surgery for benign tumor s /p left frontal temporal craniotomy with temporal encephalomalacia presenting with complaints of transient left facial droop and left arm numbness. MRI Brain w/o contrast shows chronic changes, no new areas of ischemic or hemorrhage. Possible TIA? also complaining of generalized weakness r/o infectious etiology -Recommend carotid duplex -check HBA1C, FLP to optimize secondary stroke risk factors -continue on ASA 81 mg -ECHO -DVT ppx with SQH/ Lovenox -PT/OT evaluation Problems: Consultation Date/Type/Reason Admit Date/Time Date of Consultation: Feb 26, 2016 Type of Consultation: neurology Reason for Consultation evaluate for TIA Referring Provider: SILAS MENG MD Hx of Present Illness 71 year old female with history of prior CVA 2001, obesity, diabetes, HTN, prior smoker, history of benign brain tumor resected in with prior left frontal temporal craniotomy and residual post operative changes, left anterior temporal lobe currently on ASA 81 mg presenting with complaint of generalized weakness and sensation of left facial droop and left arm weakness. At baseline she has LE weakness and mostly bedbound, lives with grand-daughter who helps assist her with ADL's. Since arrival to the hospital her left facial weakness and left arm weakness/numbness has improved and resolved back to baseline. MRI w /o contrast done in the ER: no acute ischemia. complains of generalized weakness, pain everywhere Past Medical History prior CVA LE baseline weakness DM Social History prior smoker lives at home with a grand-daughter Smoking Status: Current every day smoker Exam/Review of Systems Vital Signs Vitals Vital Signs Date Time Temp Pulse Resp B/P Pulse Ox O2 Delivery O2 Flow Rate FiO2 02/26/16 11:00 98.0 64 20 160/72 100 Room Air Exam patient is awake and alert oriented to hospital speech is very tangential and difficult to obtain a history from her CN: VALERIO, VFF, EOMI no nystagmus, slight Right NLF flattening improves on smile scm/trap 5/5 tongue midline Motor: lifts both arms anti-gravity trace left arm pronation noted LE 2/5 strength at baseline can move both legs side to side in plane of the bed , limited by pain Tremor in Right arm noted on intention Sensory intact throughout Reflexes 1+ UE absent LE, toes are mute b/l Results Result Diagram: 02/26/16 0508 02/26/16 0508 Results 24 hrs Laboratory Tests Test 02/26/16 05:08 02/26/16 05:32 02/26/16 08:45 Activated Partial Thromboplast Time 29.1 Alanine Aminotransferase (ALT/SGPT) 29 Albumin 4.1 Albumin/Globulin Ratio 1.17 Alkaline Phosphatase 109 Anion Gap 19 H Aspartate Amino Transf (AST/SGOT) 33 Basophils # 0.0 Basophils % 0.6 Blood Morphology Comment Blood Urea Nitrogen 14 Calcium Level 9.8 Carbon Dioxide Level 20 L Chloride Level 105 Creatinine 0.59 Direct Bilirubin 0.00 Eosinophils # 0.4 Eosinophils % 5.5 Globulin 3.50 H Glucose Level 214 Hematocrit 35.3 L Hemoglobin 11.7 L Hemoglobin A1c 7.4 H INR International Normalized Ratio 1.08 Indirect Bilirubin 0.2 Lymphocytes # 1.2 Lymphocytes % 16.2 Mean Corpuscular Hemoglobin 25.6 L Mean Corpuscular Hemoglobin Concent 33.1 Mean Corpuscular Volume 77.2 L Mean Platelet Volume 10.3 Monocytes # 0.5 Monocytes % 7.5 Neutrophils # 5.1 Neutrophils % 70.2 Nucleated Red Blood Cells # 0.0 Nucleated Red Blood Cells % 0.0 Platelet Count 110 L Potassium Level 4.2 Prothrombin Time 14.0 Prothrombin Time Ratio 1.1 Red Blood Count 4.57 Red Cell Distribution Width 16.3 H Sodium Level 140 Total Bilirubin 0.2 Total Protein 7.6 Troponin I < 0.010 < 0.010 White Blood Count 7.2 # Urine Amphetamines Screen NEGATIVE Urine Bacteria MODERATE Urine Barbiturates NEGATIVE Urine Benzodiazepines Screen NEGATIVE Urine Bilirubin NEGATIVE Urine Cannabinoids NEGATIVE Urine Clarity CLEAR Urine Cocaine Screen NEGATIVE Urine Color LT. YELLOW Urine Epithelial Cells OCCASIONAL Urine Glucose NEGATIVE Urine Hemoglobin 3+ H Urine Ketones NEGATIVE Urine Leukocyte Esterase 1+ H Urine Microscopic RBC 10-25 Urine Microscopic WBC 5-10 Urine Nitrite NEGATIVE Urine Opiates Screen POSITIVE Urine Specific [place] 1.010 Urine Total Protein NEGATIVE Urine Urobilinogen 0.2 E.U./dL Urine pH 6.0 Creatine Kinase 45 Creatine Kinase Index 5.4 Creatinine Kinase MB (Mass) 2.45 H Magnesium Level 1.4 L Thyroid Stimulating Hormone (TSH) 0.791 Medications Medications Current Medications Dextrose/Sodium Chloride (D5-1/2ns) 1,000 ml @ 75 mls/hr [id number] IV Last administered on 02/26/16t 12:25; Admin Dose 75 MLS/HR; Start 02/26/16 at 07:07 Lorazepam (Ativan) 0.5 mg Q6H PRN IV ANXIETY; Start 02/26/16 at 07:30 Ondansetron HCl (Zofran Inj) 4 mg Q6H PRN IV NAUSEA AND/OR VOMITING; Start 01/01 at 07:30 Nitroglycerin (Nitroglycerin (Sl Tab) 0.4 Mg) 1 tab Q5M PRN SL CHEST PAIN; Start 02/26/16 at 07:30 Acetaminophen (Tylenol Supp) 650 mg Q6H PRN [place] PAIN LEVEL 1-3 OR FEVER; Start 02/26/16 at 07:30 Morphine Sulfate (morphine) 2 mg Q4H PRN [place] PAIN LEVEL 7-10; Start 02/26/16 at 07:30 Bisacodyl (Dulcolax Supp) 10 mg DAILY PRN [place] CONSTIPATION; Start 02/26/16 at 07 :30 Miscellaneous Information 1 ea NOTE XX ; Start 02/26/16 at 08:00 Glucose (Glutose) 15 gm Q15M PRN PO DECREASED GLUCOSE; Start 02/26/16 at 08:00 Glucose (Glutose) 22.5 gm Q15M PRN PO DECREASED GLUCOSE; Start 02/26/16 at 08: 00 Dextrose (D50w Syringe) 25 ml Q15M PRN IV DECREASED GLUCOSE; Start 02/26/16 at 08:00 Dextrose (D50w Syringe) 50 ml Q15M PRN IV DECREASED GLUCOSE; Start 02/26/16 at 08:00 Glucagon (Glucagen) 1 mg Q15M PRN IM DECREASED GLUCOSE; Start 02/26/16 at 08:00 Glucose (Glutose) 15 gm Q15M PRN BUCCAL DECREASED GLUCOSE; Start 02/26/16 at 08 :00 CARLOS CHING MD Feb 26, 2016 12:53
--- NOTE | 2016-02-26 15:08 | RADRPT ---
PROCEDURE: US Carotids. CLINICAL INDICATION: bruit , evaluate for carotid stenosis, TIA TECHNIQUE: Multiple sonographic of the carotid bifurcation region and vertebral arteries were obta ined utilizing bonilla scale, duplex and color-flow imaging. The images were reviewed on a PACS worksta tion. COMPARISON: No prior studies are available for comparison. FINDINGS: Evaluation of the right carotid bifurcation region reveals mild calcific atherosclerotic disease. Evaluation of the left carotid bifurcation region reveals mild calcific atherosclerotic disease. There is antegrade flow within the vertebral arteries bilaterally. RIGHT CAROTID MEASUREMENTS: Common Carotid Onxsmu30.4 (cm/sec) Internal Carotid Artery - ehydymuv47 (cm/sec) Internal Carotid Artery - mid40.6 (cm/sec) Internal Carotid Artery - ckufyy29.7 (cm/sec) Internal Carotid/Common Carotid1.1 LEFT CAROTID MEASUREMENTS: Common Carotid Lzqqsv35.7 (cm/sec) Internal Carotid Artery - gkovnwcw00.3 (cm/sec) Internal Carotid Artery - mid38.8 (cm/sec) Internal Carotid Artery - zayfyl85 (cm/sec) Internal Carotid/Common Carotid1.02 RPTAT: AA IMPRESSION: No evidence for hemodynamically significant stenosis in the bilateral internal carotid arteries - va lidated velocity measurements with angiographic measurements, velocity criteria are extrapolated fro m diameter data as defined by the Society of Radiologists in Ultrasound Consensus Conference Radiolo gy 2003; 229;340-346. This study does indirectly reference the measurement of the distal ICA diamet er as the denominator for stenosis measurement. Normal antegrade flow in the vertebral arteries bilaterally. .Hilario Rankin MD, MD Date Time Electronically viewed and signed by .Hilario Rankin MD, on 02/26/2016 15:07 .S/
[2016-02-26 15:50] LABS: CHOL/HDL RATIO 2.7 RATIO
[2016-02-26] MEDS: LISINOPRIL 20 MG TAB PO SCH (17:40)
--- NOTE | 2016-02-26 17:42 | HP ---
DATE OF ADMISSION: 02/26/2016 BREAD JOCKEY: Neurology. CHIEF COMPLAINT: Left-sided facial droop and left arm numbness, speech impairment. HISTORY OF PRESENT ILLNESS: This is a 71-year-old female with past medical history of CVA 2001, mor bid obesity, diabetes mellitus, hypertension, prior smoker, history of benign brain tumor resected i n 1989 with prior left frontotemporal craniotomy and residual postoperative changes secondary to mar ked temporal lobe encephalomalacia, who presents to [facility] complaining of havi ng transient left facial droop and left arm weakness which has been going on for the past several da ys with worsening of the symptoms since yesterday. The patient at baseline has left lower and left upper extremity weakness, mostly bed bound. She lives with her granddaughter who helps her, assists with ADL. Upon arrival to emergency room, patient obtained a CT of the brain which showed no defin ite acute intracranial abnormalities, stable exam with atrophy and chronic microvascular ischemic ch anges of the left temporal lobe, encephalomalacia and postoperative changes. Her blood pressure was found to be elevated at 232/93. She was treated with aspirin. In the course of the emergency room , her blood pressure right now has been improving since patient has obtained her home medication. At this time, the patient denies any chest pain, shortness of breath, nausea, vomiting, diarrhea. N o headache, dizziness. No lightheadedness. No change in visual acuity, diplopia, photophobia. No neck pain, no restricted range of motion in the upper and lower extremity. The patient does have we akness in her left upper and lower extremities, although this is chronic. According to patient, the symptoms have resolved since admission. The patient does not have any more facial droop. Her stre ngth is back to her baseline. PAST MEDICAL AND SURGICAL HISTORY: 1. History of CVA. 2. Arthritis. 3. Morbid obesity. 4. Hypertension. 5. Diabetes mellitus. 6. GERD. 7. Dyslipidemia. 8. Chronic anemia. 9. Prior CVA. 9. Previous brain surgery for benign tumor, status post left frontotemporal craniotomy with tempor al encephalomalacia. MEDICATIONS: 1. Aspirin 81 mg . 2. Calcium 500 mg 3. Celebrex 50 mg. 4. Jackson. 5. Lisinopril 20 mg. 6. Glucophage 1000 mg 7. Singulair 10 mg. 8. Omeprazole 20 mg 9. Ramipril 10 mg 9. Simvastatin 40 mg 10. Januvia 25 mg 11. Triamterene 25 grams. ALLERGIES: NO KNOWN DRUG ALLERGIES. FAMILY HISTORY: Positive for hypertension and dyslipidemia. SOCIAL HISTORY: She denies any smoking, alcohol or illicit drugs. She resides at home with her fam mayco. She is pretty much bed bound since her CVA and she gets around with assistance. REVIEW OF SYSTEMS: As above per HPI, otherwise 12 review of systems has been found to be negative. PHYSICAL EXAMINATION: VITAL SIGNS: Temperature 98.2, pulse 60, respiration 20, blood pressure 144/____, oxygen 100% room air. GENERAL APPEARANCE: The patient is lying in bed comfortably without any acute distress. She is toño ke, alert, oriented. She is able to answer my questions properly. Body habitus morbidly obese with BMI 32.2. EYES AND ENT: Conjunctivae and lids are normal. Pupils are normal. Extraocular normal. Hearing g rossly normal. Lips are normal. Oral mucosa is moist. NECK: Supple. Trachea is midline. No lymphadenopathy. RESPIRATORY: Effort is normal. Clear to auscultation bilaterally. CARDIOVASCULAR: Normal S1, S2. Regular rhythm and rate. No murmur, no bruits, no edema. Peripher al pulses, radial pulses palpable. Cap refill is normal. CHEST: Normal expansion of thorax during inspiration. GASTROINTESTINAL: Abdomen contour is morbidly obese. Bowel sounds ____body habitus. No guarding, no rebound. GENITOURINARY: Deferred. MUSCULOSKELETAL: Right upper and lower extremities, her strength is normal. Left upper and lower e xtremity strength is 4/5. NEUROLOGIC: Cranial nerves II through XII seem grossly intact. There is no sign of facial droop. LABORATORY WORK AND IMAGING: EKG shows sinus rhythm, first degree AV block, left ventricular hyper trophy with repolarization abnormality, anterior infarct, age indeterminate, no acute ST depression or elevation. No sign of ischemia. LABORATORY WORK AND IMAGING: CT of the brain showed no definite acute intracranial abnormality, sta ble exam with atrophy and chronic microvascular ischemic changes with left temporal lobe encephaloma lacia, postoperative changes. Carotid Doppler showed no evidence of hemodynamically significant stenosis in the bilateral internal carotid arteries. Sodium 140, potassium 4.2, chloride 105, bicarbonate 20, BUN 14, creatinine 0.59, glucose 214, hemog lobin 7.4, magnesium 1.4. LFTs all within normal limits. Triglyceride 144, total cholesterol 140, LDL 60, HDL 51. TSH 0.791. WBC 7.3, hemoglobin 11.7, hematocrit 35.3, MCV 77.2, platelets 110. ASSESSMENT AND PLAN: 1. Left-sided weakness with facial droop with history of CVA. This has resolved. This is likely secondary to this TIA. There is no evidence of acute infarct in MRI and the CT of the brain. Neuro logy has been consulted. We will continue aspirin and statin. Continue to monitor blood pressure. 2. Essential hypertension. Continue lisinopril and Ramipril. 3. Diabetes mellitus. Continue metformin. 4. Insulin sliding scale and Januvia. Place patient on low-carbohydrate diet. 5. Dyslipidemia. Continue statin. We will continue to monitor patient closely. Further recommend ations, management and treatment as per clinical course. Total amount of time was spent for evaluation of patient and admission workup 45 minutes. Dictated By: NEERAJ QUIROZ/NTS Conf#: [id number] DID#: [id number]
[2016-02-26 17:44] VITALS: TEMP 98.2
[2016-02-26 17:48] LABS: CREATINE KINASE 33 IU/L (23-200)
[2016-02-26 17:57] LABS: CK-MB 1.96 ng/ml (0.0-2.4)
[2016-02-26 18:05] LABS: TROPONIN-I < 0.010 ng/ml (0.00-0.12)
[2016-02-26 18:47] VITALS: Ht 162.6 cm; Wt 119.1 kg
[2016-02-26 18:56] VITALS: PULSE 64
[2016-02-26 20:23] VITALS: BP 173/75; RESP 18
[2016-02-26 20:28] VITALS: PULSE 57
[2016-02-26] MEDS ORDERED: ATORVASTATIN 20 MG TAB PO SCH (21:00)
[2016-02-26 22:00] VITALS: BP 154/65; PULSE 68
[2016-02-26] MEDS: CALCIUM CARBONATE 1.25 GM TAB PO SCH (22:04)
[2016-02-27] VITALS (10 sets, daily range): BP systolic 118–180; BP diastolic 55–84; PULSE 61–68; RESP 18–62
[2016-02-27] MEDS ORDERED: PANTOPRAZOLE (EC) 40 MG TAB PO SCH (06:00)
[2016-02-27 06:57] LABS: BASOPHILS % 0.8 % (0.0-2.0); EOSINOPHILS # 0.3 10^3/ul (0.0-0.5); EOSINOPHILS % 6.7 % (0.0-7.0); HEMATOCRIT 33.2 % (37.0-47.0); HEMOGLOBIN 11.1 g/dl (12.0-16.0); LYMPHOCYTES # 1.2 10^3/ul (0.8-2.9); MEAN CORPUSCULAR HEMOGLOBIN 25.6 pg (29.0-33.0); MEAN CORPUSCULAR HGB CONC 33.3 g/dl (32.0-37.0); MEAN CORPUSCULAR VOLUME 76.8 fl (82.0-101.0); MEAN PLATELET VOLUME 10.2 fl (7.4-10.4); MONOCYTE # 0.4 10^3/ul (0.3-0.9); NEUTROPHIL # 2.9 10^3/ul (1.6-7.5); NEUTROPHILS % 59.5 % (39.0-77.0); PLATELET COUNT 86 10^3/UL (140-440); RED BLOOD COUNT 4.32 10^6/ul (4.20-5.40); RED CELL DISTRIBUTION WIDTH 16.5 % (11.5-14.5); UNCORRECTED WBC 4.9 10^3/ul (4.8-10.8); WHITE BLOOD COUNT 4.9 10^3/ul (4.8-10.8)
[2016-02-27 07:04] LABS: CONDITION 1; LH ANALYZER COMMENTS 1
[2016-02-27 07:08] LABS: POTASSIUM 4.2 mmol/L (3.5-5.1)
[2016-02-27 07:10] LABS: CREATININE 0.57 mg/dl (0.44-1.00)
[2016-02-27 07:11] LABS: CALCIUM 9.5 mg/dl (8.4-10.2)
[2016-02-27] MEDS ORDERED: metFORMIN 500 MG TAB PO SCH (07:55)
[2016-02-27] MEDS: LISINOPRIL 20 MG TAB PO SCH (08:14)
[2016-02-27] MEDS: CALCIUM CARBONATE 1.25 GM TAB PO SCH (08:14)
[2016-02-27] MEDS: INSULIN ASPART [NOVOLOG] 3 ML PEN SC SCH ×3 (08:16→18:23)
[2016-02-27] MEDS ORDERED: ASPIRIN (EC) 81 MG TAB PO SCH ×2 (09:00)
[2016-02-27] MEDS ORDERED: LINAGLIPTIN 5 MG TABLET PO SCH (09:00)
--- NOTE | 2016-02-27 11:54 | CONS ---
Date/Time of Note Date/Time of Note DATE: 02/27/16 TIME: 11:51 Consult Date/Type/Reason Admit Date/Time Feb 26, 2016 at 06:35 Initial Consult Date 02/26/16 Type of Consultation: neurology Reason for Consultation transient left sided facial numbness, left arm weakness, resolved Ordering Provider: SILAS MENG MD Subjective symptoms are stable today, improved left sided numbness sensation generalized weakness has now improved feels back to baseline Objective Vital Signs Date Time Temp Pulse Resp B/P Pulse Ox O2 Delivery O2 Flow Rate FiO2 02/27/16 08:23 98.4 64 19 180/84 94 02/26/16 17:44 Room Air Intake and Output 02/26/16 02/26/16 02/27/16 15:00 23:00 07:00 Intake Total 360 ml Output Total 600 ml Balance -240 ml patient is awake and alert oriented to hospital speech is very tangential and difficult to obtain a history from her CN: VALERIO, VFF, EOMI no nystagmus, slight Right NLF flattening improves on smile scm/trap 5/5 tongue midline Motor: lifts both arms anti-gravity trace left arm pronation noted LE 2/5 strength at baseline can move both legs side to side in plane of the bed , limited by pain Tremor in Right arm noted on intention Sensory intact throughout Reflexes 1+ UE absent LE, toes are mute b/l Results/Medications Result Diagram: 02/27/16 0620 02/27/16 0620 Results 24 hrs Laboratory Tests Test 02/26/16 15:46 02/26/16 17:10 02/26/16 22:02 02/27/16 06:20 Bedside Glucose 175 182 Creatine Kinase 33 Creatine Kinase Index 5.9 Creatinine Kinase MB (Mass) 1.96 Troponin I < 0.010 Anion Gap 14 Basophils # 0.0 Basophils % 0.8 Blood Morphology Comment Blood Urea Nitrogen 14 Calcium Level 9.5 Carbon Dioxide Level 26 Chloride Level 104 Creatinine 0.57 Eosinophils # 0.3 Eosinophils % 6.7 Glucose Level 166 Hematocrit 33.2 L Hemoglobin 11.1 L Lymphocytes # 1.2 Lymphocytes % 24.0 Mean Corpuscular Hemoglobin 25.6 L Mean Corpuscular Hemoglobin Concent 33.3 Mean Corpuscular Volume 76.8 L Mean Platelet Volume 10.2 Monocytes # 0.4 Monocytes % 9.0 Neutrophils # 2.9 Neutrophils % 59.5 Nucleated Red Blood Cells # 0.0 Nucleated Red Blood Cells % 0.0 Platelet Count 86 #L Potassium Level 4.2 Red Blood Count 4.32 Red Cell Distribution Width 16.5 H Sodium Level 140 White Blood Count 4.9 # Test 02/27/16 08:00 Bedside Glucose 191 Medications Current Medications Lorazepam (Ativan) 0.5 mg Q6H PRN IV ANXIETY; Start 02/26/16 at 07:30 Ondansetron HCl (Zofran Inj) 4 mg Q6H PRN IV NAUSEA AND/OR VOMITING; Start 01/01 at 07:30 Nitroglycerin (Nitroglycerin (Sl Tab) 0.4 Mg) 1 tab Q5M PRN SL CHEST PAIN; Start 02/26/16 at 07:30 Acetaminophen (Tylenol Supp) 650 mg Q6H PRN [place] PAIN LEVEL 1-3 OR FEVER Last administered on 02/27/16 08:15; Admin Dose 650 MG; Start 02/26/16 at 07:30 Morphine Sulfate (morphine) 2 mg Q4H PRN IV PAIN LEVEL 7-10 Last administered on 02/26/16 22:08; Admin Dose 2 MG; Start 02/26/16 at 07:30 Bisacodyl (Dulcolax Supp) 10 mg DAILY PRN [place] CONSTIPATION; Start 02/26/16 at 07 :30 Miscellaneous Information 1 ea NOTE XX ; Start 02/26/16 at 08:00 Glucose (Glutose) 15 gm Q15M PRN PO DECREASED GLUCOSE; Start 02/26/16 at 08:00 Glucose (Glutose) 22.5 gm Q15M PRN PO DECREASED GLUCOSE; Start 02/26/16 at 08: 00 Dextrose (D50w Syringe) 25 ml Q15M PRN IV DECREASED GLUCOSE; Start 02/26/16 at 08:00 Dextrose (D50w Syringe) 50 ml Q15M PRN IV DECREASED GLUCOSE; Start 02/26/16 at 08:00 Glucagon (Glucagen) 1 mg Q15M PRN IM DECREASED GLUCOSE; Start 02/26/16 at 08:00 Glucose (Glutose) 15 gm Q15M PRN BUCCAL DECREASED GLUCOSE; Start 02/26/16 at 08 :00 Aspirin (Halfprin) 81 mg DAILY PO Last administered on 02/27/16 08:14; Admin Dose 81 MG; Start 02/27/16 at 09:00 Lisinopril (Zestril) 20 mg DAILY PO Last administered on 02/27/16 08:14; Admin Dose 20 MG; Start 02/26/16 at 16:30 Calcium Carbonate (Oyster Shell Calcium) 1.25 gm DAILY PO Last administered on 02/27/16 08:14; Admin Dose 1.25 GM; Start 02/26/16 at 18:00 Pantoprazole (Protonix Tab) 40 mg DAILY@06 PO Last administered on 02/27/16 05 :45; Admin Dose 40 MG; Start 02/27/16 at 06:00 Atorvastatin Calcium (Lipitor) 20 mg DAILY@21 PO Last administered on 22:04; Admin Dose 20 MG; Start 02/26/16 at 21:00 Linagliptin (Tradjenta) 5 mg DAILY PO Last administered on 02/27/16 08:14; Admin Dose 5 MG; Start 02/27/16 at 09:00 Assessment/Plan Chief Complaint/Hosp Course 71 year old female with DM, prior CVA, previous brain surgery for benign tumor s /p left frontal temporal craniotomy with temporal encephalomalacia presenting with complaints of transient left facial droop and left arm numbness. MRI Brain w/o contrast shows chronic changes, no new areas of ischemic or hemorrhage. Dx: hypertensive urgency -goal blood pressure <140/90 -check HBA1C, FLP to optimize secondary stroke risk factors -continue on ASA 81 mg -DVT ppx with SQH/ Lovenox -PT/OT evaluation, discharge planning home thank you for involving me in her care Problems: CARLOS CHING MD Feb 27, 2016 11:53
--- NOTE | 2016-02-27 13:16 | PDOCDIS ---
Discharge Instructions CONDITION Patient Condition: Good HOME CARE INSTRUCTIONS: Special Diet: Carb Controlled Diet ACTIVITY: Activity Restrictions: Slowly Increase Activity Rest between Activity Special Program FOLLOW UP/APPOINTMENTS Appointments Follow-up with primary care doctor as outpatient in 1 week Follow-up with neurologist as outpatient NEERAJ TEJEDA MD Feb 27, 2016 13:15
[2016-02-27] MEDS ORDERED: LISI20TA11 PO (13:22)
[2016-02-27] MEDS ORDERED: MTF1000T PO (13:22)
[2016-02-27] MEDS ORDERED: SMV40T PO (13:22)
[2016-02-27] MEDS ORDERED: SITA50TA2 PO (13:22)
[2016-02-27] MEDS ORDERED: ASPI-535 PO (13:22)
--- NOTE | 2016-02-27 18:57 | DS ---
DATE OF ADMISSION: 02/26/2016 DATE OF DISCHARGE: 02/27/2016 CONSULTANTS: Neurologist. DISCHARGE DIAGNOSIS: 1. Questionable transient ischemic attack. The patient's MRI and CT of the brain was negative for any evidence of acute infarct. 2. Essential hypertension, well controlled on lisinopril. 3. Diabetes mellitus on metformin and Januvia. 4. Dyslipidemia on statin. 5. History of brain surgery for benign tumor, status post left frontotemporal craniotomy and enceph alomalacia, stable. 6. Chronic anemia, stable. 7. Gastroesophageal reflux disease. Continue proton pump inhibitor. 7. Morbid obesity. Low carb diet. 8. Arthritis. Continue pain medication. MEDICATIONS: 1. Metformin 1000 mg p.o. b.i.d. 2. Januvia 50 mg p.o. daily. 3. Aspirin 81 mg day. 4. Calcium 500 mg p.o. daily. 5. Celebrex 250 mg daily. 6. [place] p.r.n. 7. Lisinopril 20 mg daily. 8. Singulair 10 mg daily. 9. Omeprazole 20 daily. 10. Simvastatin 40 mg p.o. daily. ALLERGIES: NO KNOWN DRUG ALLERGIES. DISPOSITION: 1. Home with home health. 2. Follow up with primary care physician as outpatient. 3. Follow up with neurology as outpatient. HOSPITAL COURSE: This is a 69-year-old female with past medical history of CVA in 2001, morbid obes ity, diabetes mellitus, hypertension and previous smoker 2. 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 Left frontotemporal craniotomy with residual postoperative changes secondary to marked temporal lobe encephalomalacia, who presented to [facility] secondary to having transient left-sided facial droop, left arm weakne ss which has been going on for the past several days, worsening x1 day. This had resolved when constance ent presented to the emergency room, CT of the brain was obtained which showed no definite acute int racranial abnormality. Cerebellar exam revealed active chronic microvascular ischemic changes of t he left temporal lobe. The patient was seen and evaluated by neurology. MRI of the brain was obtai tien which showed no significant interval changes identified since 01/17/2013, no evidence of acute i ntracranial abnormality or recent infarction, prior left frontotemporal craniotomy changes are ident ified with encephalomalacia, postoperative changes involving the left anterior temporal lobe, left c avernous sinus, mild chronic microvascular changes. Patient's blood pressure has been moderately co ntrolled on lisinopril. At this time, we will also start the patient on low dose of Norvasc. 3. Dyslipidemia. Patient's lipid panel is well controlled on statin. 4. Regarding her diabetes mellitus, the patient's hemoglobin A1C was 7.4. Patient is on metformin once a day, Januvia 25 mg. I think this is insufficient; therefore, I have increased her Metformin 1000 mg p.o. b.i.d. and Januvia 50 mg. Also, patient needs to be compliant with her diet for which she was placed on low carb diet during this course of hospitalization. 5. The patient has been seen and evaluated by physical therapy has been able to ambulate with a wal ker. The patient is back to her baseline. At this time, she has been cleared by neurologist to be discharged home. She will be provided home health with physical therapy and also a walker for her h ome. 6. At this time, patient is medically stable to be discharged home with a close [facility] as an outpatient. LABORATORY: Triglyceride 144, total cholesterol 140, LDL 60, HDL 51. Sodium 140, potassium 4.2, ch loride 104, bicarbonate 26, BUN 14, creatinine 0.57, glucose 166, calcium 9.5, hemoglobin A1c 7.4. Troponin negative. CONDITION AT TIME OF DISCHARGE: Stable. Dictated By: NEERAJ TEJEDA MD PN/NTS Conf#: [id number] DID#: [id number] CC: [facility];*EndCC*
== END 2016-02-27 19:01 | disposition home or self-care (01) | DRG 69 ==
LOC: E/R 04:42 → TEL 06:35
PROVIDERS: ADMIT Student in an Organized Health Care Education/Training Program; ATTEND Student in an Organized Health Care Education/Training Program
DX: G45.9 Transient cerebral ischemic attack, unspecified (principal); D64.9 Anemia, unspecified; Z68.42 Body mass index [BMI] 45.0-49.9, adult; R29.810 Facial weakness; I10 Essential (primary) hypertension; E78.5 Hyperlipidemia, unspecified; K21.9 Gastro-esophageal reflux disease without esophagitis; E66.01 Morbid (severe) obesity due to excess calories; M19.90 Unspecified osteoarthritis, unspecified site
CPT/HCPCS: 36415; 70450; 70551; 71010; 80048; 80053; 80061; 80307; 81001; 81003; 82550; 82553; 82962; 83036; 83735; 84443; 84484; 85025; 85610; 85730; 87081; 92610; 93005; 93880; 96372; 97162; 97167; J1815; J2270; J7042

== ENCOUNTER 2017-09-12 18:06 | Emergency (ER) | END 2017-09-12 21:56 | disposition home or self-care (01) ==

== ENCOUNTER 2018-12-01 10:19 | Emergency (ER) | payer OTHER ==
[~2018-12-01] VITALS: Ht 165.1 cm; Wt 79.5 kg
[~2018-12-01 10:19] MED LIST changes: +AZIT500T3 PO; +LISI-471 PO; -LISI20TA11 PO; -RAMI10CA48 PO; +SIMV40TA3 PO; -SITA25TA3 PO; +SITA50TA2 PO; -SMV40T PO; -TRIA1POW10 MC
[2018-12-01 10:25] VITALS: BP 141/74; PULSE 61; RESP 18; Ht 165.1 cm; Wt 79.5 kg
== END 2018-12-01 14:42 | disposition home or self-care (01) ==
LOC: FTE 10:19
DX: Z01.812 Encounter for preprocedural laboratory examination (principal); E11.9 Type 2 diabetes mellitus without complications; I10 Essential (primary) hypertension; J45.909 Unspecified asthma, uncomplicated; J44.9 Chronic obstructive pulmonary disease, unspecified; E66.9 Obesity, unspecified; Z68.29 Body mass index [BMI] 29.0-29.9, adult; Z79.82 Long term (current) use of aspirin; Z79.84 Long term (current) use of oral hypoglycemic drugs; Z87.891 Personal history of nicotine dependence
CPT/HCPCS: 72100; 73502; 73510; 80053; 80061; 84439; 84443; 85025